=== PATIENT | male | born 1990 | race Caucasian/White ===

== ENCOUNTER 2019-07-05 18:13 | Inpatient (IN) | payer MEDICAID, SELFPAY ==
[~2019-07-05] VITALS: Ht 177.8 cm; Wt 65.5 kg
[2019-07-05] MEDS ORDERED: SODIUM CHLORIDE 0.9% 1,000 ML IV ONE (19:15)
[2019-07-05 19:40] LABS: BASOPHILS % (AUTO) 0.2 % (0.0-2.0); EOSINOPHILS % (AUTO) 0 % (1.0-6.0); HEMATOCRIT 41.6 % (41-53); HEMOGLOBIN 13.7 g/dL (13.5-17.5); LYMPHOCYTES # (AUTO) 1.2 K/uL (1.0-4.8); LYMPHOCYTES % (AUTO) 11.3 % (22.0-44.0); MEAN CORPUSCULAR HEMOGLOBIN 30.7 pg (26.0-34.0); MEAN CORPUSCULAR HGB CONC 32.8 G/dL (31.0-37.0); MEAN CORPUSCULAR VOLUME 94 fL (80-100); MONOCYTES # (AUTO) 0.7 K/uL (0.1-1.0); MONOCYTES % (AUTO) 6.3 % (2.0-9.0); NEUTROPHILS # (AUTO) 8.7 K/uL (1.8-7.7); NEUTROPHILS % (AUTO) 82.2 % (40.0-70.0); PLATELET COUNT (AUTO) 270 K/uL (150-450); RED BLOOD CELL COUNT(AUTO) 4.46 MIL/uL (4.50-5.90); RED CELL DISTRIBUTION WIDTH 13.3 % (11.5-14.5)
[2019-07-05 19:53] LABS: INR 1.2 (0.9-1.1); PROTHROMBIN TIME 12.7 SEC (9.4-11.6)
[2019-07-05 20:02] LABS: ANION GAP 11 mmol/L (8-16); CALCIUM, TOTAL 9.2 mg/dL (8.8-10.5); CARBON DIOXIDE 25 mmol/L (22-29); CHLORIDE 110 mmol/L (98-107); CREATININE 1.29 mg/dL (0.60-1.30); GLOMERULAR FILTR. RATE CALC > 60 mL/min (>60); GLUCOSE,RANDOM 81 mg/dL (70-110); POTASSIUM 4.4 mmol/L (3.5-5.1); SODIUM SERUM 146 mmol/L (136-145); UREA NITROGEN, BLOOD 9 mg/dL (7-18)
[2019-07-05 20:10] LABS: B-TYPE NATRIURETIC PEPTIDE 11 pg/mL (0-100)
[2019-07-05 20:27] LABS: ALANINE AMINOTRANSFERASE 31 U/L (12-78); ALBUMIN 4.4 g/dL (3.4-5.0); ALKALINE PHOSPHATASE 59 U/L (46-116); ASPARTATE AMINOTRANSFERASE 20 U/L (15-37); BILIRUBIN,TOTAL 0.4 mg/dL (0.1-1.0); CREATINE KINASE, TOTAL ONLY 331 U/L (39-308); TOTAL PROTEIN, SERUM 7.7 g/dL (6.4-8.2)
[2019-07-05] MEDS ORDERED: HALOPERIDOL LACTATE 5 MG/ML VIAL IM ONE (20:45)
[2019-07-05] MEDS ORDERED: LORazepam 2 MG/ML VIAL IM ONE (20:45)
[2019-07-05] MEDS ORDERED: DiphenhydrAMINE HCL 50 MG/ML VIAL IM ONE (20:45)
[2019-07-05] MEDS ORDERED: 0.9% SODIUM CHLORIDE 10 ML SYRINGE IVP PRN (22:00)
[2019-07-05] MEDS ORDERED: ACETAMINOPHEN 325 MG TABLET PO PRN (22:00)
[2019-07-05 23:35] LABS: APPEARANCE,URINE CLEAR (CLEAR); BILIRUBIN,URINE NEGATIVE (NEGATIVE); GLUCOSE, URINE (UA) NEGATIVE (NEGATIVE); KETONES,URINE NEGATIVE (NEGATIVE); LEUKOCYTE ESTERASE ,URINE NEGATIVE (NEGATIVE); NITRATE,URINE NEGATIVE (NEGATIVE); OCCULT BLOOD,URINE NEGATIVE (NEGATIVE); PROTEIN,URINE NEGATIVE (NEGATIVE)
[2019-07-05 23:45] LABS: AMPHET/METH SCREEN,URINE NEGATIVE (NEGATIVE); BARBITURATE SCREEN, URINE NEGATIVE (NEGATIVE); BENZODIAZEPINES SCREEN,URINE NEGATIVE (NEGATIVE); CANNABINOID SCREEN,URINE NEGATIVE (NEGATIVE); METHADONE SCREEN, URINE NEGATIVE (NEGATIVE); OPIATE SCREEN,URINE NEGATIVE (NEGATIVE)
[2019-07-05 23:46] LABS: PHENCYCLIDINE SCREEN,URINE NEGATIVE (NEGATIVE)
[2019-07-06 01:21] LABS: COCAINE SCREEN,URINE NEGATIVE (NEGATIVE)
[2019-07-06] MEDS ORDERED: ACETAMINOPHEN 325 MG TABLET PO PRN (07:30)
[2019-07-06] MEDS ORDERED: MAGNESIUM HYDROXIDE SUSPENSION 30 ML UDCUP PO PRN (07:30)
[2019-07-06] MEDS ORDERED: SODIUM CHLORIDE 0.45% 1,000 ML IV ONE (07:30)
[2019-07-06 08:42] VITALS: BP 127/86
[2019-07-06 09:11] LABS: BASOPHILS % (AUTO) 0.3 % (0.0-2.0); EOSINOPHILS % (AUTO) 0.3 % (1.0-6.0); HEMATOCRIT 43.4 % (41-53); HEMOGLOBIN 14.5 g/dL (13.5-17.5); LYMPHOCYTES # (AUTO) 1.5 K/uL (1.0-4.8); MEAN CORPUSCULAR HEMOGLOBIN 31.4 pg (26.0-34.0); MEAN CORPUSCULAR HGB CONC 33.3 G/dL (31.0-37.0); MEAN CORPUSCULAR VOLUME 94 fL (80-100); MONOCYTES # (AUTO) 0.5 K/uL (0.1-1.0); MONOCYTES % (AUTO) 7.1 % (2.0-9.0); NEUTROPHILS # (AUTO) 4.4 K/uL (1.8-7.7); NEUTROPHILS % (AUTO) 69.3 % (40.0-70.0); PLATELET COUNT (AUTO) 255 K/uL (150-450); RED BLOOD CELL COUNT(AUTO) 4.61 MIL/uL (4.50-5.90); RED CELL DISTRIBUTION WIDTH 13.6 % (11.5-14.5)
[2019-07-06 09:35] LABS: ALANINE AMINOTRANSFERASE 30 U/L (12-78); ALBUMIN 4.6 g/dL (3.4-5.0); ALKALINE PHOSPHATASE 62 U/L (46-116); ANION GAP 5 mmol/L (8-16); ASPARTATE AMINOTRANSFERASE 38 U/L (15-37); BILIRUBIN,TOTAL 0.8 mg/dL (0.1-1.0); CALCIUM, TOTAL 8.9 mg/dL (8.8-10.5); CARBON DIOXIDE 30 mmol/L (22-29); CHLORIDE 108 mmol/L (98-107); CREATININE 1.09 mg/dL (0.60-1.30); GLOMERULAR FILTR. RATE CALC > 60 mL/min (>60); GLUCOSE,RANDOM 99 mg/dL (70-110); POTASSIUM 3.7 mmol/L (3.5-5.1); SODIUM SERUM 143 mmol/L (136-145); TOTAL PROTEIN, SERUM 7.8 g/dL (6.4-8.2); UREA NITROGEN, BLOOD 14 mg/dL (7-18)
[2019-07-06] MEDS: MULTIVITAMINS WITH MINERALS, THERAPEUTIC TABLET PO SCH (10:03)
[2019-07-06] MEDS: FAMOTIDINE 20 MG TABLET PO SCH (10:03)
[2019-07-06 11:08] VITALS: BP 121/77
[2019-07-06 15:21] VITALS: BP 122/75
[2019-07-06 19:34] VITALS: BP 120/88
[2019-07-07] VITALS (7 sets, daily range): BP systolic 116–129; BP diastolic 66–85
[2019-07-07] MEDS: FAMOTIDINE 20 MG TABLET PO SCH (08:29)
[2019-07-07] MEDS: MULTIVITAMINS WITH MINERALS, THERAPEUTIC TABLET PO SCH (08:29)
[2019-07-07] MEDS: NICOTINE 21 MG/24 HOUR PATCH TD SCH (08:29)
[2019-07-07] MEDS: RisperiDONE 0.5 MG TABLET PO SCH (20:27)
[2019-07-08 04:30] VITALS: BP 122/82
[2019-07-08] MEDS: MULTIVITAMINS WITH MINERALS, THERAPEUTIC TABLET PO SCH (08:15)
[2019-07-08] MEDS: RisperiDONE 0.5 MG TABLET PO SCH ×2 (08:15→20:39)
[2019-07-08] MEDS: NICOTINE 21 MG/24 HOUR PATCH TD SCH (08:15)
[2019-07-08] MEDS: FAMOTIDINE 20 MG TABLET PO SCH (08:16)
[2019-07-08 08:25] VITALS: BP 137/87
[2019-07-08 10:52] VITALS: BP 112/80
[2019-07-08 16:31] VITALS: BP 122/69
[2019-07-08 20:02] VITALS: BP 116/76
[2019-07-09] VITALS: BP 103/75
[2019-07-09 05:51] VITALS: BP 104/69
[2019-07-09 08:00] VITALS: BP 126/83
[2019-07-09] MEDS: FAMOTIDINE 20 MG TABLET PO SCH (08:49)
[2019-07-09] MEDS: NICOTINE 21 MG/24 HOUR PATCH TD SCH (08:49)
[2019-07-09] MEDS: MULTIVITAMINS WITH MINERALS, THERAPEUTIC TABLET PO SCH (08:49)
[2019-07-09] MEDS: RisperiDONE 0.5 MG TABLET PO SCH ×2 (08:49→21:41)
[2019-07-09 20:26] VITALS: BP 125/97
[2019-07-10 00:08] VITALS: BP 103/70
[2019-07-10 05:17] VITALS: BP 112/73
[2019-07-10] MEDS: RisperiDONE 0.5 MG TABLET PO SCH (08:51)
[2019-07-10] MEDS: FAMOTIDINE 20 MG TABLET PO SCH (08:51)
[2019-07-10] MEDS: MULTIVITAMINS WITH MINERALS, THERAPEUTIC TABLET PO SCH (08:51)
[2019-07-10] MEDS: NICOTINE 21 MG/24 HOUR PATCH TD SCH (08:56)
[2019-07-10 09:26] VITALS: BP 112/74
== END 2019-07-10 15:20 | disposition home or self-care (01) | DRG 426 ==
LOC: EMS 18:19 → 5N 07-06 06:14 → 5S 07-06 06:15
PROVIDERS: ADMIT Internal Medicine; ATTEND Internal Medicine
DX: E87.0 Hyperosmolality and hypernatremia (principal); E43 Unspecified severe protein-calorie malnutrition; F20.9 Schizophrenia, unspecified; F15.10 Other stimulant abuse, uncomplicated; F19.10 Other psychoactive substance abuse, uncomplicated; Z20.828 Contact with and (suspected) exposure to other viral communicable diseases; Z91.19 Patient's noncompliance with other medical treatment and regimen; Z68.20 Body mass index [BMI] 20.0-20.9, adult
CPT/HCPCS: 87635; 93005; 99291; G0378; G0480; J7030

== ENCOUNTER 2021-07-08 16:17 | Inpatient (IN) | payer MEDICAID ==
[~2021-07-08] VITALS: Ht 170.2 cm; Wt 63.7 kg
[2021-07-08] MEDS ORDERED: LORazepam 2 MG/ML VIAL IM ONE (16:45)
[2021-07-08] MEDS ORDERED: DiphenhydrAMINE HCL 50 MG/ML VIAL IM ONE (16:45)
[2021-07-08] MEDS ORDERED: HALOPERIDOL LACTATE 5 MG/ML VIAL IM ONE (16:45)
[2021-07-08 17:49] LABS: COVID AG,FIA SOURCE NASOPHARYNGEAL
[2021-07-08 18:17] LABS: BASOPHILS % (AUTO) 0.4 % (0.0-2.0); EOSINOPHILS % (AUTO) 0.3 % (1.0-6.0); HEMATOCRIT 38.5 % (41-53); HEMOGLOBIN 13.1 g/dL (13.5-17.5); LYMPHOCYTES # (AUTO) 1.8 K/uL (1.0-4.8); LYMPHOCYTES % (AUTO) 31.3 % (22.0-44.0); MEAN CORPUSCULAR HEMOGLOBIN 31.1 pg (26.0-34.0); MEAN CORPUSCULAR HGB CONC 34.1 G/dL (31.0-37.0); MEAN CORPUSCULAR VOLUME 91 fL (80-100); MONOCYTES # (AUTO) 0.4 K/uL (0.1-1.0); MONOCYTES % (AUTO) 6.2 % (2.0-9.0); NEUTROPHILS # (AUTO) 3.6 K/uL (1.8-7.7); NEUTROPHILS % (AUTO) 61.8 % (40.0-70.0); PLATELET COUNT (AUTO) 277 K/uL (150-450); RED BLOOD CELL COUNT(AUTO) 4.22 MIL/uL (4.50-5.90); RED CELL DISTRIBUTION WIDTH 14.2 % (11.5-14.5)
[2021-07-08 18:29] LABS: ANION GAP 9 mmol/L (8-16); CALCIUM, TOTAL 8.6 mg/dL (8.8-10.5); CARBON DIOXIDE 26 mmol/L (22-29); CHLORIDE 106 mmol/L (98-107); CREATININE 0.81 mg/dL (0.60-1.30); GLOMERULAR FILTR. RATE CALC > 60 mL/min (>60); GLUCOSE,RANDOM 78 mg/dL (70-110); SODIUM SERUM 141 mmol/L (136-145); UREA NITROGEN, BLOOD 7 mg/dL (7-18)
[2021-07-08 18:34] LABS: ALANINE AMINOTRANSFERASE 29 U/L (12-78); ALBUMIN 3.5 g/dL (3.4-5.0); ALKALINE PHOSPHATASE 57 U/L (46-116); ASPARTATE AMINOTRANSFERASE 34 U/L (15-37); BILIRUBIN,TOTAL 0.3 mg/dL (0.1-1.0); TOTAL PROTEIN, SERUM 7.2 g/dL (6.4-8.2)
[2021-07-08] MEDS ORDERED: ZOLPIDEM TARTRATE 10 MG TABLET PO PRN (22:15)
[2021-07-08] MEDS ORDERED: HALOPERIDOL 5 MG TABLET PO PRN (22:15)
[2021-07-08] MEDS ORDERED: LORazepam 2 MG TABLET PO PRN (22:15)
[2021-07-09 01:52] LABS: APPEARANCE,URINE CLEAR (CLEAR); BILIRUBIN,URINE NEGATIVE (NEGATIVE); GLUCOSE, URINE (UA) NEGATIVE (NEGATIVE); KETONES,URINE NEGATIVE (NEGATIVE); LEUKOCYTE ESTERASE ,URINE NEGATIVE (NEGATIVE); NITRATE,URINE NEGATIVE (NEGATIVE); OCCULT BLOOD,URINE NEGATIVE (NEGATIVE); PH,URINE 5.5 (5.0-8.0); PROTEIN,URINE NEGATIVE (NEGATIVE); SPECIFIC GRAVITIY, URINE 1.011 (1.003-1.030); UROBILINOGEN,URINE <=1.0 mg/dL (<=1.0)
[2021-07-09 02:00] LABS: AMPHET/METH SCREEN,URINE NEGATIVE (NEGATIVE); BARBITURATE SCREEN, URINE NEGATIVE (NEGATIVE); BENZODIAZEPINES SCREEN,URINE NEGATIVE (NEGATIVE); CANNABINOID SCREEN,URINE NEGATIVE (NEGATIVE); COCAINE SCREEN,URINE NEGATIVE (NEGATIVE); METHADONE SCREEN, URINE NEGATIVE (NEGATIVE); OPIATE SCREEN,URINE NEGATIVE (NEGATIVE)
[2021-07-09 02:07] LABS: PHENCYCLIDINE SCREEN,URINE NEGATIVE (NEGATIVE)
[2021-07-09 02:18] VITALS: BP 140/85
[2021-07-09 08:25] VITALS: BP 131/77
[2021-07-09] MEDS ORDERED: GuaiFENesin/D-METHORPHAN [SUGAR-FREE] 200-20MG/10 ML SYRUP UDCUP PO PRN (16:00)
[2021-07-09] MEDS ORDERED: DOCUSATE SODIUM 100 MG CAPSULE PO PRN (16:00)
[2021-07-09] MEDS ORDERED: CloNIDine HCL 0.1 MG TABLET PO PRN (16:00)
[2021-07-09] MEDS ORDERED: ONDANSETRON HCL 4 MG TABLET PO PRN (16:00)
[2021-07-09] MEDS ORDERED: PETROLATUM,WHITE 28 GM JELLY TP PRN (16:00)
[2021-07-09] MEDS ORDERED: MAGNESIUM HYDROXIDE SUSPENSION 30 ML UDCUP PO PRN (16:00)
[2021-07-09] MEDS ORDERED: MAG HYDROX/AL HYDROX/SIMETH ES 30 ML SUSPENSION UDCUP PO PRN (16:00)
[2021-07-09] MEDS ORDERED: NICOTINE 14 MG/24 HOUR PATCH TD PRN (16:00)
[2021-07-09] MEDS ORDERED: LOPERAMIDE HCL 2 MG CAPSULE PO PRN (16:00)
[2021-07-09] MEDS ORDERED: ACETAMINOPHEN 325 MG TABLET PO PRN (16:00)
[2021-07-09] MEDS ORDERED: IBUPROFEN 400 MG TABLET PO PRN (16:00)
[2021-07-09] MEDS ORDERED: ALBUTEROL SULFATE HFA 90 MCG/PUFF 8 GM INHALER IH PRN (16:00)
[2021-07-09 16:11] VITALS: BP 134/78
[2021-07-10 08:19] VITALS: BP 114/58
[2021-07-10 16:16] VITALS: BP 119/76
[2021-07-11 09:13] VITALS: BP 147/106
[2021-07-11 16:10] VITALS: BP 147/86
== END 2021-07-11 15:00 | disposition home or self-care (01) | DRG 750 ==
LOC: EMS 16:17 → 3EC 07-09 01:19
PROVIDERS: ADMIT Psychiatry & Neurology Child & Adolescent Psychiatry; ATTEND Psychiatry & Neurology Child & Adolescent Psychiatry
DX: F20.9 Schizophrenia, unspecified (principal); R45.851 Suicidal ideations; E83.51 Hypocalcemia; D64.9 Anemia, unspecified; Z20.822 Contact with and (suspected) exposure to COVID-19; F10.229 Alcohol dependence with intoxication, unspecified; Y90.6 Blood alcohol level of 120-199 mg/100 ml; Z59.00 Homelessness unspecified
CPT/HCPCS: 80053; 81003; 85025; 99291; G0480; J1200; J1630; J2060

== ENCOUNTER 2021-12-09 19:13 | Inpatient (IN) | payer MEDICAID ==
[~2021-12-09] VITALS: Ht 180.3 cm; Wt 63.0 kg
[2021-12-09] MEDS ORDERED: HALOPERIDOL LACTATE 5 MG/ML VIAL ONE (20:02)
[2021-12-09] MEDS ORDERED: LORazepam 2 MG/ML VIAL ONE (20:02)
[2021-12-09] MEDS ORDERED: DiphenhydrAMINE HCL 50 MG/ML VIAL ONE (20:02)
[2021-12-09] MEDS ORDERED: HALOPERIDOL LACTATE 5 MG/ML VIAL IM ONE (20:15)
[2021-12-09] MEDS ORDERED: DiphenhydrAMINE HCL 50 MG/ML VIAL IM ONE (20:15)
[2021-12-09] MEDS ORDERED: LORazepam 2 MG/ML VIAL IM ONE (20:15)
[2021-12-09 20:58] LABS: BASOPHILS % (AUTO) 0.1 % (0.0-2.0); EOSINOPHILS % (AUTO) 0 % (1.0-6.0); HEMATOCRIT 41.6 % (41-53); HEMOGLOBIN 13.6 g/dL (13.5-17.5); LYMPHOCYTES # (AUTO) 1.1 K/uL (1.0-4.8); LYMPHOCYTES % (AUTO) 11.2 % (22.0-44.0); MEAN CORPUSCULAR HEMOGLOBIN 31.3 pg (26.0-34.0); MEAN CORPUSCULAR HGB CONC 32.8 G/dL (31.0-37.0); MEAN CORPUSCULAR VOLUME 95 fL (80-100); MONOCYTES # (AUTO) 0.8 K/uL (0.1-1.0); MONOCYTES % (AUTO) 7.8 % (2.0-9.0); NEUTROPHILS % (AUTO) 80.9 % (40.0-70.0); PLATELET COUNT (AUTO) 334 K/uL (150-450); RED BLOOD CELL COUNT(AUTO) 4.35 MIL/uL (4.50-5.90); RED CELL DISTRIBUTION WIDTH 15.8 % (11.5-14.5)
[2021-12-09 21:01] LABS: COVID AG,FIA SOURCE NASOPHARYNGEAL
[2021-12-09 21:06] LABS: CALCIUM, TOTAL 9.2 mg/dL (8.8-10.5); CREATININE 1.63 mg/dL (0.60-1.30); POTASSIUM 3.3 mmol/L (3.5-5.1)
[2021-12-09 21:12] LABS: ALBUMIN 3.8 g/dL (3.4-5.0); BILIRUBIN,TOTAL 0.3 mg/dL (0.1-1.0); TOTAL PROTEIN, SERUM 7.2 g/dL (6.4-8.2)
[2021-12-10] VITALS (10 sets, daily range): BP systolic 101–130; BP diastolic 60–86
[2021-12-10] MEDS: HALOPERIDOL 5 MG TABLET PO PRN (04:33)
[2021-12-10] MEDS: LORazepam 2 MG TABLET PO PRN (04:33)
[2021-12-10] MEDS ORDERED: IBUPROFEN 400 MG TABLET PO PRN (09:15)
[2021-12-10] MEDS ORDERED: LOPERAMIDE HCL 2 MG CAPSULE PO PRN (09:15)
[2021-12-10] MEDS ORDERED: DOCUSATE SODIUM 100 MG CAPSULE PO PRN (09:15)
[2021-12-10] MEDS ORDERED: GuaiFENesin/D-METHORPHAN [SUGAR-FREE] 200-20MG/10 ML SYRUP UDCUP PO PRN (09:15)
[2021-12-10] MEDS ORDERED: ALBUTEROL SULFATE HFA 90 MCG/PUFF 8 GM INHALER IH PRN (09:15)
[2021-12-10] MEDS ORDERED: MAG HYDROX/AL HYDROX/SIMETH ES 30 ML SUSPENSION UDCUP PO PRN (09:15)
[2021-12-10] MEDS ORDERED: CloNIDine HCL 0.1 MG TABLET PO PRN (09:15)
[2021-12-10] MEDS ORDERED: PETROLATUM,WHITE 28 GM JELLY TP PRN (09:15)
[2021-12-10] MEDS ORDERED: ACETAMINOPHEN 325 MG TABLET PO PRN (09:15)
[2021-12-10] MEDS ORDERED: MAGNESIUM HYDROXIDE SUSPENSION 30 ML UDCUP PO PRN (09:15)
[2021-12-10] MEDS ORDERED: ChlordiazePOXIDE HCL 25 MG CAPSULE PO PRN (09:45)
[2021-12-10] MEDS: RisperiDONE 2 MG TABLET PO SCH ×2 (11:00→16:29)
[2021-12-10] MEDS ORDERED: CYANOCOBALAMIN 1,000 MCG/ML VIAL IM ONE (16:30)
[2021-12-10] MEDS: THIAMINE 100 MG TABLET PO SCH (17:45)
[2021-12-11] MEDS ORDERED: ChlordiazePOXIDE HCL 25 MG CAPSULE PO PRN (07:00)
[2021-12-11] MEDS: MULTIVITAMINS WITH MINERALS, THERAPEUTIC TABLET PO SCH (08:08)
[2021-12-11] MEDS: THIAMINE 100 MG TABLET PO SCH ×2 (08:08→16:35)
[2021-12-11] MEDS: RisperiDONE 2 MG TABLET PO SCH ×2 (08:08→16:35)
[2021-12-11] MEDS: FOLIC ACID 1 MG TABLET PO SCH (08:08)
[2021-12-11] MEDS: ChlordiazePOXIDE HCL 25 MG CAPSULE PO SCH ×4 (08:09→20:17)
[2021-12-11] MEDS: HALOPERIDOL 5 MG TABLET PO PRN (08:13)
[2021-12-11] MEDS: LORazepam 2 MG TABLET PO PRN (08:13)
[2021-12-11 08:18] LABS: MAGNESIUM 1.6 mg/dL (1.80-2.40); PHOSPHORUS 4.1 mg/dL (2.5-4.9); POTASSIUM 4.4 mmol/L (3.5-5.1)
[2021-12-11 10:00] VITALS: BP 114/72
[2021-12-11 14:00] VITALS: BP 112/67
[2021-12-11 16:03] VITALS: BP 110/68
[2021-12-11 17:50] VITALS: BP 112/67
[2021-12-11 21:18] VITALS: BP 125/70
[2021-12-11] MEDS: ONDANSETRON HCL 4 MG TABLET PO PRN (22:43)
[2021-12-11] MEDS: ZOLPIDEM TARTRATE 10 MG TABLET PO PRN (22:43)
[2021-12-12 08:13] VITALS: BP 114/70
[2021-12-12 08:16] VITALS: BP 114/70
[2021-12-12 08:17] LABS: AMPHET/METH SCREEN,URINE NEGATIVE (NEGATIVE); BARBITURATE SCREEN, URINE NEGATIVE (NEGATIVE); BENZODIAZEPINES SCREEN,URINE POSITIVE (NEGATIVE); CANNABINOID SCREEN,URINE NEGATIVE (NEGATIVE); COCAINE SCREEN,URINE NEGATIVE (NEGATIVE); METHADONE SCREEN, URINE NEGATIVE (NEGATIVE); OPIATE SCREEN,URINE NEGATIVE (NEGATIVE)
[2021-12-12 08:18] LABS: APPEARANCE,URINE CLEAR (CLEAR); BILIRUBIN,URINE NEGATIVE (NEGATIVE); GLUCOSE, URINE (UA) NEGATIVE (NEGATIVE); KETONES,URINE NEGATIVE (NEGATIVE); LEUKOCYTE ESTERASE ,URINE NEGATIVE (NEGATIVE); NITRATE,URINE NEGATIVE (NEGATIVE); OCCULT BLOOD,URINE NEGATIVE (NEGATIVE); PH,URINE 6.5 (5.0-8.0); PROTEIN,URINE NEGATIVE (NEGATIVE); SPECIFIC GRAVITIY, URINE 1.006 (1.003-1.030); UROBILINOGEN,URINE <=1.0 mg/dL (<=1.0)
[2021-12-12] MEDS: THIAMINE 100 MG TABLET PO SCH ×2 (08:21→16:02)
[2021-12-12] MEDS: ChlordiazePOXIDE HCL 25 MG CAPSULE PO SCH ×4 (08:21→20:14)
[2021-12-12] MEDS: RisperiDONE 2 MG TABLET PO SCH ×2 (08:21→16:02)
[2021-12-12] MEDS: FOLIC ACID 1 MG TABLET PO SCH (08:21)
[2021-12-12] MEDS: MULTIVITAMINS WITH MINERALS, THERAPEUTIC TABLET PO SCH (08:21)
[2021-12-12 08:27] LABS: PHENCYCLIDINE SCREEN,URINE NEGATIVE (NEGATIVE)
[2021-12-12] MEDS: ONDANSETRON HCL 4 MG TABLET PO PRN (09:34)
[2021-12-12 16:36] VITALS: BP 105/65
[2021-12-12] MEDS: ZOLPIDEM TARTRATE 10 MG TABLET PO PRN (20:27)
[2021-12-12 20:33] VITALS: BP 136/81
[2021-12-13] MEDS ORDERED: ChlordiazePOXIDE HCL 10 MG CAPSULE PO PRN (07:00)
[2021-12-13] MEDS: ChlordiazePOXIDE HCL 10 MG CAPSULE PO SCH ×4 (08:01→21:07)
[2021-12-13] MEDS: THIAMINE 100 MG TABLET PO SCH ×2 (08:01→16:23)
[2021-12-13] MEDS: MULTIVITAMINS WITH MINERALS, THERAPEUTIC TABLET PO SCH (08:01)
[2021-12-13] MEDS: RisperiDONE 2 MG TABLET PO SCH ×2 (08:01→16:23)
[2021-12-13] MEDS: FOLIC ACID 1 MG TABLET PO SCH (08:01)
[2021-12-13 08:30] VITALS: BP 123/73
[2021-12-13 17:03] VITALS: BP 107/79
[2021-12-14] MEDS ORDERED: ChlordiazePOXIDE HCL 10 MG CAPSULE PO PRN (07:00)
[2021-12-14 08:00] VITALS: BP 106/69
[2021-12-14] MEDS: MULTIVITAMINS WITH MINERALS, THERAPEUTIC TABLET PO SCH (08:53)
[2021-12-14] MEDS: RisperiDONE 2 MG TABLET PO SCH ×2 (08:54→16:50)
[2021-12-14] MEDS: THIAMINE 100 MG TABLET PO SCH ×2 (08:54→16:50)
[2021-12-14] MEDS: FOLIC ACID 1 MG TABLET PO SCH (08:54)
[2021-12-14 16:05] VITALS: BP 112/71
[2021-12-15 06:43] LABS: COVID AG,FIA SOURCE NASAL SWAB
[2021-12-15 08:30] VITALS: BP 109/72
[2021-12-15] MEDS: THIAMINE 100 MG TABLET PO SCH ×2 (08:47→17:20)
[2021-12-15] MEDS: FOLIC ACID 1 MG TABLET PO SCH (08:47)
[2021-12-15] MEDS: MULTIVITAMINS WITH MINERALS, THERAPEUTIC TABLET PO SCH (08:47)
[2021-12-15] MEDS: RisperiDONE 2 MG TABLET PO SCH ×2 (08:47→17:20)
[2021-12-15 16:10] VITALS: BP 109/73
[2021-12-16 08:08] VITALS: BP 126/84
[2021-12-16] MEDS: RisperiDONE 2 MG TABLET PO SCH ×2 (08:28→17:55)
[2021-12-16] MEDS: FOLIC ACID 1 MG TABLET PO SCH (08:28)
[2021-12-16] MEDS: THIAMINE 100 MG TABLET PO SCH ×2 (08:28→17:55)
[2021-12-16] MEDS: MULTIVITAMINS WITH MINERALS, THERAPEUTIC TABLET PO SCH (08:28)
[2021-12-16 16:03] VITALS: BP 115/72
[2021-12-17 08:35] VITALS: BP 104/67
[2021-12-17] MEDS: THIAMINE 100 MG TABLET PO SCH ×2 (09:45→16:31)
[2021-12-17] MEDS: MULTIVITAMINS WITH MINERALS, THERAPEUTIC TABLET PO SCH (09:45)
[2021-12-17] MEDS: FOLIC ACID 1 MG TABLET PO SCH (09:45)
[2021-12-17] MEDS: RisperiDONE 2 MG TABLET PO SCH ×2 (09:45→16:31)
[2021-12-17 16:00] VITALS: BP 126/71
[2021-12-17] MEDS: NICOTINE 14 MG/24 HOUR PATCH TD PRN (16:31)
[2021-12-18 08:06] VITALS: BP 130/85
[2021-12-18] MEDS: RisperiDONE 2 MG TABLET PO SCH ×2 (08:16→16:18)
[2021-12-18] MEDS: THIAMINE 100 MG TABLET PO SCH ×2 (08:16→16:18)
[2021-12-18] MEDS: FOLIC ACID 1 MG TABLET PO SCH (08:16)
[2021-12-18] MEDS: MULTIVITAMINS WITH MINERALS, THERAPEUTIC TABLET PO SCH (08:16)
[2021-12-18 16:02] VITALS: BP 115/73
[2021-12-18] MEDS: NICOTINE 14 MG/24 HOUR PATCH TD PRN (18:51)
[2021-12-19 08:00] VITALS: BP 113/79
[2021-12-19] MEDS: MULTIVITAMINS WITH MINERALS, THERAPEUTIC TABLET PO SCH (08:12)
[2021-12-19] MEDS: RisperiDONE 2 MG TABLET PO SCH (08:12)
[2021-12-19] MEDS: THIAMINE 100 MG TABLET PO SCH (08:12)
[2021-12-19] MEDS: FOLIC ACID 1 MG TABLET PO SCH (08:12)
[2021-12-19] MEDS ORDERED: RISP2TAB86 PO (11:26)
== END 2021-12-19 13:00 | disposition home or self-care (01) | DRG 750 ==
LOC: EMS 19:13 → UNDOADMIN 12-10 → 3EC 12-10
PROVIDERS: ADMIT Psychiatry & Neurology Child & Adolescent Psychiatry; ATTEND Psychiatry & Neurology Child & Adolescent Psychiatry
DX: F20.0 Paranoid schizophrenia (principal); N17.9 Acute kidney failure, unspecified; E44.0 Moderate protein-calorie malnutrition; Z91.14 Patient's other noncompliance with medication regimen; F15.90 Other stimulant use, unspecified, uncomplicated; F10.10 Alcohol abuse, uncomplicated; E87.6 Hypokalemia; Z20.822 Contact with and (suspected) exposure to COVID-19; F41.9 Anxiety disorder, unspecified; Z59.00 Homelessness unspecified; Z86.73 Personal history of transient ischemic attack (TIA), and cerebral infarction without residual deficits; Z68.1 Body mass index [BMI] 19.9 or less, adult
CPT/HCPCS: 80053; 80307; 81003; 83735; 84100; 84132; 85025; 99285; G0480; J3420; Q0162